=== PATIENT | male | born 1980 | race American Indian/Alaskan Native ===

== ENCOUNTER 2017-10-25 16:36 | Emergency (ER) | payer SELFPAY ==
[2017-10-25 16:44] VITALS: BP 132/95
[2017-10-25] MEDS ORDERED: TORADOL IM ONE (17:12)
--- NOTE | 2017-10-25 17:32 | Emergency Department Report ---
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 Patient states he has been worked up in the past including MRI and neurology evaluation and has been treated with physical therapy and other back pain related therapy in the past. The physical training today he had to do pushups and sit-ups and now he complains of moderate pain and tightness to his lower back and left-sided neck burning pain. Patient denies weakness, headache, nausea, vomiting, or urinary retention. He took Tylenol without improvement in pain it was scared to take anything stronger since he plans to drive back home 4 hours to [facility]. - Related Data Previous Rx's Medication Instructions Recorded Last Taken Type Cyclobenzaprine [Flexeril] 10 mg PO TID PRN #30 tablet 10/25/17 Unknown Rx Ibuprofen [Motrin] 800 mg PO Q8HR PRN #30 tablet 10/25/17 Unknown Rx Allergies Allergy/AdvReac Type Severity Reaction Status Date / Time No Known Allergies Allergy Unverified 10/25/17 16:44 ED Review of Systems ROS: Stated complaint: BACK PAIN Other details as noted in HPI Comment: All other systems reviewed and negative ED Past Medical Hx - Past Medical History Previous Medical History?: Yes Additional medical history: Chronic back pain, chronic neck pain, herniated disc - Surgical History Past Surgical History?: No - Social History Smoking Status: Never Smoker Substance Use Type: None - Medications Home Medications: Home Medications Medication Instructions Recorded Confirmed Last Taken Type Cyclobenzaprine [Flexeril] 10 mg PO TID PRN #30 tablet 10/25/17 Unknown Rx Ibuprofen [Motrin] 800 mg PO Q8HR PRN #30 tablet 10/25/17 Unknown Rx ED Physical Exam - General Limitations: No Limitations - Other Other exam information: General: No limitations, patient is alert in no acute distress Head exam: Atraumatic, normocephalic Eyes exam: Normal appearance ENT: Moist mucous membrane, normal oropharynx Neck exam: Normal inspection, full range of motion, no meningismus nontender Respiratory exam: Clear to auscultation bilateral, no wheezes, rales, crackles Cardiovascular: Normal rate and rhythm, normal heart sounds Abdomen: Soft, nondistended, and nontender, with normal bowel sounds, no rebound, or guarding Extremity: Full range of motion normal inspection no deformity Back: Normal Inspection, full range of motion, tenderness and spasm along lumbar paraspinal muscles. No midline tenderness Neurologic: Alert, oriented x3, cranial nerves intact, 5/ 5 upper extremity strength and lower extremity strength. Some mild decrease in touch sensation along the radial side of the left forearm compared right, steady gait Psychiatric: normal affect, normal mood Skin: Warm, dry, intact ED Course Vital Signs 10/25/17 10/25/17 16:41 17:20 Temperature 98.2 F Pulse Rate 87 Respiratory 16 16 Rate Blood Pressure 132/95 O2 Sat by Pulse 96 Oximetry - Reevaluation(s) Reevaluation #1: 10/25/17 17:31 Patient treated with Toradol in the ED ED Medical Decision Making - Medical Decision Making Patient exacerbation of chronic pain secondary to physical activity. Patient likely exacerbating his underlying herniated disc as well as muscle strain for physical activity. Received Toradol IM in the ED and discharged, Flexeril and motrin 800. - Differential Diagnosis radiculopathy, herniated disc, muscle strain Critical Care Time: No Critical care attestation.: If time is entered above; I have spent that time in minutes in the direct care of this critically ill patient, excluding procedure time. ED Disposition Clinical Impression: Cervical strain, acute, Lumbar strain, History of herniated intervertebral disc Disposition: -01 TO HOME OR SELFCARE Is pt being admited?: No Does the pt Need Aspirin: No Condition: Stable Instructions: Cervical Sprain (ED), Low Back Strain (ED), Laminectomy for Herniated Disk (ED) Additional Instructions: Take the medication as prescribed. Please note the Flexeril as a muscle relaxant and may cause drives and is so do not drive or operate heavy machinery while taking this medication. Follow with your physicians who are currently managing your ongoing back pain and herniated disc. Prescriptions: Cyclobenzaprine [Flexeril] 10 mg PO TID PRN #30 tablet PRN Reason: Muscle Spasm Ibuprofen [Motrin] 800 mg PO Q8HR PRN #30 tablet PRN Reason: Pain Referrals: PRIMARY CARE, [Primary Care Provider] - 3-5 Days Time of Disposition: 17:42
== END 2017-10-25 17:54 | disposition home or self-care (01) ==
LOC: ED 16:36
DX: S16.1XXA Strain of muscle, fascia and tendon at neck level, initial encounter (principal); S39.012A Strain of muscle, fascia and tendon of lower back, initial encounter; X58.XXXA Exposure to other specified factors, initial encounter; Y93.89 Activity, other specified; Y92.89 Other specified places as the place of occurrence of the external cause; Y99.8 Other external cause status
CPT/HCPCS: 96372; 99282; J1885